=== PATIENT | male | born 1945 | race Two or more races ===

== ENCOUNTER 2019-03-15 21:50 | Observation (INO) | payer MEDICARE, OTHER ==
[~2019-03-15] VITALS: Ht 172.7 cm; Wt 112.8 kg
--- NOTE | 2019-03-15 22:00 | NUR ---
LATE ENTRY FOR TIMEOF TRIAGE: ER MD INTO TRIAGE TO ASSESS PATIENT. MD AGREES WITH CALLING CODE NEURO.
--- NOTE | 2019-03-15 22:00 | NUR ---
pg code neuro @[id number]
[2019-03-15] MEDS ORDERED: OMNIPAQUE 350 MG/ML, 100ML BOTTLE ONE (22:33)
--- NOTE | 2019-03-15 22:43 | NUR ---
DELAY IN NEUROLOGIST EVAL D/T TECHNICAL DIFFICUTIES
--- NOTE | 2019-03-15 22:56 | NUR ---
NOTICED SYMPTOMS STARTED AT 1830P (STUMBLING/CONFUSED/LEFT ARM WEAKNESS) PRESENTED TO HOSPITAL AT 1950 (BROUGHT IN BY FAMILY) STROKE ALERT RAISED AT 2200 WRITERS EXAM AT 2205 ONLY REMARKABLE FOR LEFT ARM NUMBNESS RATED AT 1/10-PATIENT REPORTS "THE NUMBNESS IS MAYBE A 1/10, WAS 10/10 10 MINUTES AGO BUT IT IS GETTING BETTER." DR. OZUNA AT BEDSIDE-TO CONTINUE ACUTE STROKE WORKUP-EMBOLECTOMY CANDIDATE FSBS OBTAINED AT 2205 (89), PIV PLACED FROM WHICH LABS WERE DRAWN, VSS RE-CHECKED TO CT SCAN AT 2210 (HEAD WITH AND WITHOUT) NEUROLOGIST EXAM AT 2258P DR. GONZALEZ (DELAYED D/T TECHNICAL DIFFICULTIES)
[2019-03-15 23:05] LABS: BASOPHILS # (AUTO) 0.13 x10^3/uL (0-0.1); BASOPHILS % (AUTO) 2 % (0-1); EOSINOPHILS # (AUTO) 0.34 x10^3/uL (0-0.4); EOSINOPHILS % (AUTO) 4 % (1-7); LYMPHOCYTES # (AUTO) 1.38 x10^3/uL (1-3.4); LYMPHOCYTES % (AUTO) 18 % (22-44); MD NO; MEAN CORPUSCULAR HEMOGLOBIN 30.8 pg (27.5-34.5); MEAN CORPUSCULAR HGB CONC 33.4 g/dL (33.2-36.2); MEAN CORPUSCULAR VOLUME 92.1 fL (81-97); MEAN PLATELET VOLUME 8.6 fL (7.4-10.4); MONOCYTES # (AUTO) 0.75 x10^3/uL (0.2-0.8); MONOCYTES % (AUTO) 10 % (2-9); NEUTROPHILS # (AUTO) 5.11 x10^3/uL (1.8-6.8); NEUTROPHILS % (AUTO) 66 % (42-75); PLATELET COUNT 200 x10^3/uL (130-400); RED BLOOD COUNT 4.49 x10^6/uL (4.38-5.82); RED CELL DISTRIBUTION WIDTH 14.1 % (9.4-14.8)
--- NOTE | 2019-03-15 23:05 | NUR ---
NO SYMPTOMS AT THIS TIME. HOWEVER DR. OZUNA REPORTS PLAN TO POTENTIALLY TRANSFER TO [facility] FOR EMBOLECTOMY (CONVERNING IMAGING DESPITE [facility] SCALE RESOLUTION)
[2019-03-15 23:17] LABS: INTERNATIONAL NORMALIZED RATIO 0.99 (0.93-1.1); PROTHROMBIN TIME 10.4 Seconds (9.6-11.5)
--- NOTE | 2019-03-15 23:22 | NUR ---
REMAINS WITHOUT SYMPTOMS US OBTAINED-SENT FOR ANALYSIS (HX OF UTI'S)
[2019-03-15] MEDS ORDERED: CAND4TAB3 PO (23:27)
[2019-03-15] MEDS ORDERED: TAMS-11 PO (23:27)
[2019-03-15] MEDS ORDERED: ASPI-496 PO (23:27)
[2019-03-15] MEDS ORDERED: FINA1TAB16 PO (23:27)
[2019-03-15] MEDS ORDERED: METO25TA35 PO (23:27)
[2019-03-15] MEDS ORDERED: ATOR-2 PO (23:27)
--- NOTE | 2019-03-15 23:28 | NUR ---
DR. GONZALEZ CALLED BACK AFTER SPEAKING WITH JULIO GARCIA AT [facility]. PLAN TO ADMIT HERE AT [facility] ADMIN ANTIPLATLET/CHOLESTEROL MEDS
[2019-03-15] MEDS ORDERED: KETOROLAC 30 MG/1 ML ONE (23:41)
[2019-03-15] MEDS ORDERED: CLOPIDOGREL 75 MG TABLET ONE (23:41)
[2019-03-15] MEDS ORDERED: ASPIRIN 325 MG TABLET ONE (23:41)
[2019-03-15] MEDS ORDERED: ACETAMINOPHEN 500 MG TABLET ONE (23:42)
[2019-03-15] MEDS: CLOPIDOGREL 75 MG TABLET PO SCH (23:44)
--- NOTE | 2019-03-15 23:44 | NUR ---
MEDICATED PER EMAR FOR FRONTAL RIVERA RATED AT 7/10 AND ANTIPLATLET MEDICATIONS PER NEURO (PLAVIX & FULL DOSE ASA)
[2019-03-15 23:53] LABS: CULTURE INDICATED? NO; MICROSCOPIC NOT IND
[2019-03-16] MEDS ORDERED: ASPIRIN 325 MG TABLET PO ONE
[2019-03-16] MEDS ORDERED: KETOROLAC 30 MG/1 ML IVPush ONE
[2019-03-16] MEDS ORDERED: ACETAMINOPHEN 500 MG TABLET PO ONE
--- NOTE | 2019-03-16 00:08 | NUR ---
REPORT TO AKILAH GUIDO
--- NOTE | 2019-03-16 00:21 | NUR ---
Pt alert and sitting up on gurney. Pt on RA. Pt denies any new or worsening symptoms. Pt and aware of and agreeable to plan to admit. Call light within reach.
--- NOTE | 2019-03-16 00:39 | NUR ---
Hospital bed requested from housekeeping.
--- NOTE | 2019-03-16 00:56 | NUR ---
Pt resting on gurney. Pt and family updated on POC and VU. reports pt took a short nap. Pt's daughter - Iliana - can be reached at [phone]
[2019-03-16] MEDS ORDERED: POLYETHYLENE GLYCOL 17 GM PACKET PO PRN (01:30)
[2019-03-16] MEDS ORDERED: ONDANSETRON ODT 4 MG PO PRN (01:30)
[2019-03-16] MEDS ORDERED: ONDANSETRON 2MG/ML, 2ML IVPush PRN (01:30)
[2019-03-16] MEDS ORDERED: BISACODYL 10 MG SUPP PR PRN (01:30)
[2019-03-16] MEDS ORDERED: ACETAMINOPHEN 325 MG TABLET PO PRN ×2 (01:30→07:30)
[2019-03-16] MEDS ORDERED: DOCUSATE 100 MG CAPSULE PO PRN (01:30)
[2019-03-16] MEDS ORDERED: PROMETHAZINE 25 MG/ML, 1ML IM PRN (01:30)
--- NOTE | 2019-03-16 01:52 | NUR ---
Pt moved to bed. Pt remains on monitors and RA. Urinal within reach. Call light within reach.
[2019-03-16] MEDS ORDERED: HEPARIN 5,000 UNITS/ML, 1ML ONE ×3 (02:01→16:58)
[2019-03-16] MEDS: HEPARIN 5,000 UNITS/ML, 1ML SQ SCH ×3 (02:03→17:00)
--- NOTE | 2019-03-16 02:11 | NUR ---
Report to HAY Pacheco
[2019-03-16 02:12] LABS: FREE T4 (FREE THYROXINE) 1.04 ng/dL (0.76-1.46)
--- NOTE | 2019-03-16 02:18 | NUR ---
REPORT RECEIVED FROM HAY ISBELL. ASSUMED CARE OF PT. PT RESTING ON HOSPITAL BED. DENIES ANY COMPLAINTS AT THIS TIME. REPORTS RELIEF OF RIVERA AT THE MOMENT. ALL VITALS STABLE. CALL LIGHT WITHIN REACH, WILL CONTINUE TO MONITOR.
--- NOTE | 2019-03-16 03:22 | NUR ---
PT SLEEPING ON HOSPITAL BED, RESPIRATIONS EVEN AND UNLABORED. ALL VITALS REMAIN STABLE. WILL CONTINUE TO MONITOR.
--- NOTE | 2019-03-16 04:31 | NUR ---
PT AWAKE. STANDING NEXT TO BED USING URINAL. BACK TO BED WITHOUT DIFFICULTY. DENIES ANY NEEDS OR CONCERNS AT THIS TIME. CALL LIGHT WITHIN REACH
[2019-03-16 04:53] LABS: BASOPHILS # (AUTO) 0.06 x10^3/uL (0-0.1); BASOPHILS % (AUTO) 1 % (0-1); EOSINOPHILS # (AUTO) 0.43 x10^3/uL (0-0.4); EOSINOPHILS % (AUTO) 6 % (1-7); LYMPHOCYTES # (AUTO) 1.63 x10^3/uL (1-3.4); LYMPHOCYTES % (AUTO) 22 % (22-44); MD NO; MEAN CORPUSCULAR HGB CONC 33.2 g/dL (33.2-36.2); MEAN CORPUSCULAR VOLUME 93.2 fL (81-97); MEAN PLATELET VOLUME 8.1 fL (7.4-10.4); MONOCYTES # (AUTO) 0.65 x10^3/uL (0.2-0.8); MONOCYTES % (AUTO) 9 % (2-9); NEUTROPHILS # (AUTO) 4.57 x10^3/uL (1.8-6.8); NEUTROPHILS % (AUTO) 62 % (42-75); PLATELET COUNT 212 x10^3/uL (130-400); RED BLOOD COUNT 4.69 x10^6/uL (4.38-5.82); RED CELL DISTRIBUTION WIDTH 13.9 % (9.4-14.8)
[2019-03-16 05:04] LABS: ALANINE AMINOTRANSFERASE 29 U/L (12-78); ALBUMIN 3.5 g/dL (3.4-5.0); ANION GAP 6 mmol/L (5-15); CALCIUM 8.9 mg/dL (8.5-10.1); CHLORIDE 110 mmol/L (98-107); CHOLESTEROL, TOTAL 125 mg/dL (140-239); CREATININE 0.94 mg/dL (0.7-1.3); TRIGLYCERIDES 39 mg/dL (50-200); VLDL CHOLESTEROL 8 mg/dL (0-25)
[2019-03-16 05:06] LABS: ALKALINE PHOSPHATASE 87 U/L (45-117); BILIRUBIN,TOTAL 0.7 mg/dL (0.2-1.0); CHOL/HDL RATIO 1.8; HDL CHOL % 54 % (26-37); HDL CHOLESTEROL (DIRECT) 68 mg/dL (40-60); TOTAL PROTEIN 6.7 g/dL (6.4-8.2)
[2019-03-16 05:07] LABS: LDL CHOLESTEROL,CALCULATED 49 mg/dL (54-169); LDL/HDL RATIO 0.7 (0.5-3.0)
[2019-03-16] MEDS ORDERED: ASPIRIN 81 MG TABLET CHEW ONE (05:16)
[2019-03-16] MEDS ORDERED: ACETAMINOPHEN 325 MG TABLET ONE (05:17)
[2019-03-16] MEDS: ASPIRIN 81 MG TABLET EC PO SCH (05:38)
--- NOTE | 2019-03-16 05:39 | NUR ---
PT MEDICATED FOR RIVERA WELL MORNING MEDICATION. ALL NEEDS ADDRESSED. PT DENIES ANY OTHER COMPLAINTS OR NEEDS AT THIS TIME. HE IS DENYING ANY NUMBNESS AND TINGLING IN LEFT ARM AT THIS TIME. FACE SYMMETRICAL. NEURO INTACT
[2019-03-16] MEDS ORDERED: LORazepam 2 MG/ML, 1ML ONE (06:23)
[2019-03-16] MEDS ORDERED: LORazepam 2 MG/ML, 1ML IVPush ONE (06:30)
--- NOTE | 2019-03-16 06:31 | NUR ---
PT HAS AN MRI ORDERED. STATES HE IS CLAUSTROPHOBIC. VERBAL ORDER RECEIVED FROM DR. NGO FOR 1MG OF ATIVAN IVP. PT MEDICATED, 5 RIGHTS ADDRESSED.
--- NOTE | 2019-03-16 07:15 | NUR ---
REC BS REPORT PT RESTING NADN WAITING ON A ROOM
[2019-03-16] MEDS ORDERED: CLOPIDOGREL 75 MG TABLET PO SCH (09:00)
[2019-03-16] MEDS ORDERED: TAMSULOSIN 0.4 MG CAP.ER.24H ONE (09:48)
[2019-03-16] MEDS ORDERED: METOPROLOL TARTRATE 25 MG TABLET ONE (09:49)
[2019-03-16] MEDS: TAMSULOSIN 0.4 MG CAP.ER.24H PO SCH (09:56)
[2019-03-16] MEDS: METOPROLOL TARTRATE 25 MG TABLET PO SCH (09:56)
[2019-03-16] MEDS: SODIUM CHLORIDE 0.9% 1,000 ML IV SCH (10:05)
--- NOTE | 2019-03-16 10:11 | NUR ---
PT RESTING CHIP ATE ALL OF HIS MEAL MEDS GIVEN PER ORDERS
--- NOTE | 2019-03-16 14:10 | NUR ---
RECEIVED REPORT FROM OTTO RN. PT RESTING IN BED. NADN. LAZO.
[2019-03-16] MEDS: FINASTERIDE 5 MG TABLET PO SCH (14:12)
[2019-03-16] MEDS: LOSARTAN 25MG TABLET PO SCH (14:13)
--- NOTE | 2019-03-16 14:14 | NUR ---
PT MEDICATED WITH LOSARTAN AND FINASTERIDE PER EMAR.
--- NOTE | 2019-03-16 14:54 | NUR ---
PT PROVIDED W/ LUNCH TRAY.
--- NOTE | 2019-03-16 15:14 | NUR ---
PT RESTING IN BED. NADN. VSS.
--- NOTE | 2019-03-16 16:50 | NUR ---
PT RESTING IN BED. NADN. VSS. DINNER TRAY ODERED FOR PT.
--- NOTE | 2019-03-16 17:03 | NUR ---
PT RESTING IN BED. NADN. NOVA PROVIDED W/ DINNER TRAY.
--- NOTE | 2019-03-16 18:11 | NUR ---
REPORT GIVEN TO TRINH, SANCHEZ RN. ALL QUESTIONS ANSWERED. AWAITING PT TRANSPORT.
[2019-03-16 19:18] VITALS: BP 135/83
[2019-03-16] MEDS ORDERED: ATORVASTATIN 80 MG TABLET PO SCH (21:00)
[2019-03-17 00:58] VITALS: BP 122/69
[2019-03-17] MEDS: HEPARIN 5,000 UNITS/ML, 1ML SQ SCH ×2 (02:23→09:09)
[2019-03-17] MEDS: ASPIRIN 81 MG TABLET EC PO SCH (05:14)
[2019-03-17] MEDS: SODIUM CHLORIDE 0.9% 1,000 ML IV SCH (05:14)
[2019-03-17 06:22] LABS: ANION GAP 6 mmol/L (5-15); CALCIUM 8.6 mg/dL (8.5-10.1); CHLORIDE 113 mmol/L (98-107)
[2019-03-17 06:23] LABS: CREATININE 0.78 mg/dL (0.7-1.3)
[2019-03-17 07:30] VITALS: BP 135/82
[2019-03-17] MEDS: TAMSULOSIN 0.4 MG CAP.ER.24H PO SCH (09:09)
[2019-03-17] MEDS: LOSARTAN 25MG TABLET PO SCH (09:09)
[2019-03-17] MEDS: METOPROLOL TARTRATE 25 MG TABLET PO SCH (09:10)
[2019-03-17] MEDS: CLOPIDOGREL 75 MG TABLET PO SCH (09:10)
[2019-03-17] MEDS: FINASTERIDE 5 MG TABLET PO SCH (09:10)
[2019-03-17] MEDS ORDERED: APIX5TAB PO (13:35)
[2019-03-17] MEDS ORDERED: ATOR-2 PO (13:35)
[2019-03-17] MEDS ORDERED: METO25TA35 PO (13:35)
[2019-03-17] MEDS ORDERED: CARV3.1212 PO (13:37)
[2019-03-17] MEDS ORDERED: APIXABAN 5 MG TABLET PO SCH (21:00)
[2019-03-17] MEDS ORDERED: LOSARTAN 25MG TABLET PO SCH (21:00)
[2019-03-17] MEDS ORDERED: ATORVASTATIN 40 MG TABLET PO SCH (21:00)
[2019-03-17] MEDS ORDERED: METOPROLOL TARTRATE 25 MG TABLET PO SCH (21:00)
== END 2019-03-17 15:29 | disposition home or self-care (01) ==
LOC: ED 23:58 → INTOOBSV 03-16 00:21 → EDIP 03-16 00:21 → 4EST 03-16 19:00 → DCLOUNGE 03-17 15:14
PROVIDERS: ADMIT Internal Medicine; ATTEND Internal Medicine
DX: G45.9 Transient cerebral ischemic attack, unspecified (principal); I63.9 Cerebral infarction, unspecified; G81.94 Hemiplegia, unspecified affecting left nondominant side; I82.890 Acute embolism and thrombosis of other specified veins; I10 Essential (primary) hypertension; N40.0 Benign prostatic hyperplasia without lower urinary tract symptoms; E78.5 Hyperlipidemia, unspecified; E78.00 Pure hypercholesterolemia, unspecified; R51 Headache; I21.9 Acute myocardial infarction, unspecified; I45.10 Unspecified right bundle-branch block; R79.89 Other specified abnormal findings of blood chemistry; I51.89 Other ill-defined heart diseases; G47.00 Insomnia, unspecified; E66.9 Obesity, unspecified; Z79.82 Long term (current) use of aspirin; Z79.899 Other long term (current) drug therapy
CPT/HCPCS: 36415; 70450; 70496; 70498; 70551; 80047; 80048; 80053; 80061; 81003; 82962; 83036; 83735; 84439; 84443; 85025; 85610; 85730; 92523; 93005; 93306; 96372; 96374; 96375; 97129; 97130; 97166; 99291; 99292; G0378; J1644; J1885; J2060; J7030; Q9967; 99285

== ENCOUNTER 2019-04-18 12:13 | Emergency (ER) | payer MEDICARE ==
[~2019-04-18] VITALS: Ht 172.7 cm; Wt 107.1 kg
[~2019-04-18 12:13] MED LIST: APIX5TAB PO; ASPI-496 PO; ATOR-2 PO; CAND4TAB3 PO; CARV3.1212 PO; FINA1TAB16 PO; METO25TA35 PO; TAMS-11 PO
[2019-04-18 12:39] VITALS: BP 154/100
--- NOTE | 2019-04-18 13:22 | NUR ---
FROM LOBBY TO ROOM AT THIS TIME
[2019-04-18] MEDS ORDERED: METO25TA35 PO (13:44)
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
[2019-04-18] MEDS ORDERED: DIPH,PERTUSS(ACELL),TET VAC/PF 0.5 ML IM-VACC ONE (14:00)
[2019-04-18] MEDS ORDERED: LIDOCAINE-MPF 1%, 5ML INFIL ONE (14:00)
[2019-04-18] MEDS ORDERED: ACETAMINOPHEN 325 MG TABLET ONE (14:26)
[2019-04-18] MEDS ORDERED: NEOSPORIN OINT. PKT 1 PACKET ONE (14:34)
--- NOTE | 2019-04-18 15:05 | NUR ---
Patient/Caregiver given discharge instructions and they have confirmed that they understand the instructions. Patient ambulatory with steady gait.
== END 2019-04-18 15:06 | disposition home or self-care (01) ==
LOC: ED 15:00
DX: S61.411A Laceration without foreign body of right hand, initial encounter (principal); I10 Essential (primary) hypertension; E78.00 Pure hypercholesterolemia, unspecified; V49.09XA Driver injured in collision with other motor vehicles in nontraffic accident, initial encounter; Y93.89 Activity, other specified; Y92.410 Unspecified street and highway as the place of occurrence of the external cause; Y99.8 Other external cause status
CPT/HCPCS: 12042; 90471; 90715; 93005

== ENCOUNTER 2019-07-11 19:42 | Emergency (ER) | payer MEDICARE ==
[~2019-07-11] VITALS: Ht 172.7 cm; Wt 109.0 kg
[2019-07-11 19:46] VITALS: BP 141/85
--- NOTE | 2019-07-11 20:03 | NUR ---
PT SITTING UP IN CHAIR, AT HIS SIDE, CALL LIGHT WITHIN REACH. AWAITING ERP EVAL AND ORDERS
[2019-07-11] MEDS ORDERED: TAMS-11 PO (20:07)
[2019-07-11] MEDS ORDERED: TRAM50TA2 PO (20:07)
[2019-07-11] MEDS ORDERED: CARV3.1212 PO (20:07)
--- NOTE | 2019-07-11 20:15 | NUR ---
ERP AT PT'S SIDE FOR EVAL
== END 2019-07-11 20:53 | disposition home or self-care (01) ==
LOC: ED 20:45
DX: H00.022 Hordeolum internum right lower eyelid (principal); I10 Essential (primary) hypertension
CPT/HCPCS: 99283